=== PATIENT | male | born 1965 | race African-American/Black ===

== ENCOUNTER 2021-06-15 09:34 | Emergency (ER) | payer OTHER ==
[~2021-06-15] VITALS: Ht 172.7 cm; Wt 104.0 kg
[2021-06-15] MEDS ORDERED: KETOROLAC 60MG/2ML VIAL IM ONE (10:30)
[2021-06-15 10:40] VITALS: BP 142/67
[2021-06-15] MEDS ORDERED: IBUP-2028 MT (11:53)
== END 2021-06-15 12:12 | disposition home or self-care (01) ==
LOC: ER 09:34
DX: M25.562 Pain in left knee (principal)
CPT/HCPCS: 73562; 96372; 99283; J1885

== ENCOUNTER 2022-09-10 09:12 | Emergency (ER) | payer OTHER ==
[~2022-09-10] VITALS: Ht 172.7 cm; Wt 99.0 kg
[~2022-09-10 09:12] MED LIST: IBUP-2028 MT
[2022-09-10 09:27] VITALS: BP 126/79; PULSE 77; RESP 16; TEMP 98.1; O2SAT 100
[2022-09-10] MEDS ORDERED: MELO-105 PO (10:58)
== END 2022-09-10 11:16 | disposition home or self-care (01) ==
LOC: ER 09:12
DX: M17.12 Unilateral primary osteoarthritis, left knee (principal)
CPT/HCPCS: 99283

== ENCOUNTER 2022-10-09 22:06 | Emergency (ER) | payer OTHER ==
[~2022-10-09] VITALS: Ht 172.7 cm; Wt 104.0 kg
[~2022-10-09 22:06] MED LIST changes: +MELO-105 PO
[2022-10-09 22:51] LABS: BASOPHILS % 0.3 % (0.0-2.0); EOSINOPHILS % 0.6 % (0.0-5.0); HEMATOCRIT. 41.2 % (42.0-52.0); HEMOGLOBIN. 14.1 g/dL (14.0-18.0); LYMPHOCYTES % 15.4 % (20.0-50.0); MEAN CORPUSCULAR HEMOGLOBIN 32.3 pg (28.0-32.0); MEAN CORPUSCULAR HGB CONC 34.3 g/dL (31.0-37.0); MEAN PLATELET VOLUME 9.4 fl (7.4-10.4); MONOCYTES % 8.2 % (2.0-8.0); NEUTROPHILS % 75.5 % (40.0-76.0); PLATELET 212 x1000/uL (130-400); RED BLOOD CELL COUNT 4.38 mill/uL (4.7-6.1); RED CELL DISTRIBUTION WIDTH 13.3 % (11.6-14.6)
[2022-10-09 22:59] LABS: CHLORIDE 106 mEq/L (98-107); INDEX HEMOLYSI 1 (1-3); INDEX ICTERIC 1 (1-4); INDEX LIPEMIC 1 (1-3); POTASSIUM 3.5 mEq/L (3.5-5.1); SODIUM 137 mEq/L (136-145)
[2022-10-09 23:02] VITALS: BP 123/91; PULSE 92; RESP 18; TEMP 98.8; O2SAT 98
[2022-10-09 23:02] LABS: INR 0.9; PROTHROMBIN TIME 10.2 sec (9.6-11.0)
[2022-10-09 23:03] LABS: ALBUMIN 3.7 g/dL (3.4-5.0); CALCIUM 8.7 mg/dL (8.5-10.1); CARBON DIOXIDE 27 mEq/L (21-32); ETHANOL BLOOD < 10 mg/dL (-10); GLUCOSE 133 mg/dL (70-105); UREA NITROGEN BLOOD 11 mg/dL (7-21)
[2022-10-09 23:06] LABS: ALANINE AMINOTRANSFERASE 32 IU/L (13-61); ASPARTATE AMINOTRANSFERASE 21 IU/L (15-37); BILIRUBIN TOTAL 0.4 mg/dL (0.1-1.0); CREATININE 1.2 mg/dL (0.6-1.3); PROTEIN TOTAL 7.3 g/dL (6.0-8.3)
[2022-10-10] MEDS ORDERED: METHOCARBAMOL 750MG TABLET PO SCH (01:30)
[2022-10-10] MEDS ORDERED: KETOROLAC 30MG/ML VIAL IM ONE (01:30)
[2022-10-10 01:40] LABS: CLARITY URINE CLEAR (CLEAR); COLOR URINE YELLOW (YELLOW); GLUCOSE URINE NEGATIVE (NEGATIVE); KETONES URINE NEGATIVE (NEGATIVE); LEUKOCYTE ESTERASE URINE NEGATIVE (NEGATIVE); NITRITE URINE NEGATIVE (NEGATIVE); OCCULT BLOOD URINE NEGATIVE (NEGATIVE); PROTEIN URINE NEGATIVE (NEGATIVE); SPECIFIC GRAVITY URINE 1.008 (1.005-1.030)
[2022-10-10] MEDS ORDERED: IBUP-2029 MT (01:48)
[2022-10-10] MEDS ORDERED: METH-653 MT (01:48)
[2022-10-10 01:55] LABS: *AMPHETAMINES SCREEN URINE NEGATIVE (NEGATIVE); *BARBITURATES SCREEN URINE NEGATIVE (NEGATIVE); *BENZODIAZEPINES SCREEN URINE NEGATIVE (NEGATIVE); *COCAINE SCREEN URINE NEGATIVE (NEGATIVE); CANNABINOID URINE SCREEN PRESUMTIVE POSITIVE (NEGATIVE); ECSTASY MDMA SCREEN URINE NEGATIVE (NEGATIVE); METHADONE URINE SCREEN NEGATIVE (NEGATIVE); OPIATES URINE SCREEN NEGATIVE (NEGATIVE); PHENCYCLIDINE URINE SCREEN NEGATIVE (NEGATIVE)
[2022-10-10] MEDS ORDERED: POLY17PO3 MT (02:05)
== END 2022-10-10 05:06 | disposition home or self-care (01) ==
LOC: ER 22:06
DX: S33.5XXA Sprain of ligaments of lumbar spine, initial encounter (principal); F17.210 Nicotine dependence, cigarettes, uncomplicated; X58.XXXA Exposure to other specified factors, initial encounter; Y93.89 Activity, other specified; Y92.89 Other specified places as the place of occurrence of the external cause; Y99.8 Other external cause status
CPT/HCPCS: 80053; 80320; 83690; 85025; 85610; 36415; 99285; 80305; 81003; 74176; 96372; J1885; G0480